=== PATIENT | male | born 1990 | race Caucasian/White ===

== ENCOUNTER 2018-04-16 11:29 | Emergency (ER) | payer BC ==
[2018-04-16 12:38] LABS: APPEARANCE CLEAR (CLEAR); BACTERIA FEW /hpf (NONE SEEN); BILIRUBIN NEGATIVE (NEGATIVE); COLOR YELLOW (YELLOW); EPITHELIAL CELLS RARE /hpf (0-5); GLUCOSE NEGATIVE (NEGATIVE); KETONE NEGATIVE (NEGATIVE); MUCUS <1+ /lpf (NONE SEEN); NITRITE NEGATIVE (NEGATIVE); PROTEIN NEGATIVE (NEGATIVE); UROBILINOGEN NORMAL (NORMAL); WHITE CELLS - URINE 0-5 /hpf (0-5)
== END 2018-04-16 12:47 | disposition home or self-care (01) ==
LOC: D.ER 11:29
PROVIDERS: Emergency Medicine
DX: R19.7 Diarrhea, unspecified (principal); R10.9 Unspecified abdominal pain; F17.200 Nicotine dependence, unspecified, uncomplicated

== ENCOUNTER 2018-06-19 13:44 | Emergency (ER) | payer MEDICAID ==
[~2018-06-19] VITALS: Ht 188 cm; Wt 65.0 kg
[2018-06-19 13:51] VITALS: Ht 188 cm; Wt 65.0 kg
[2018-06-19] MEDS ORDERED: LOMOTIL TABLET1 TAB PO (13:55)
[2018-06-19] MEDS ORDERED: ZOFRAN ODT4 MG/UDTAB (13:55)
[2018-06-19] MEDS ORDERED: ZOLOFT25 MG PO (13:56)
[2018-06-19] MEDS ORDERED: KLONOPIN1 MG PO (13:56)
[2018-06-19] MEDS ORDERED: ADDERALL XR 1010 M1 PO (13:56)
[2018-06-19 14:13] LABS: BASOPHILS 0.5 % (0-2); EOSINOPHILS 2.2 % (0-7); IMMATURE GRANULOCYTES 0.2 % (0-5); LYMPHOCYTES 36.8 % (15-50); MCH 31.6 pg (26.0-34.0); MCHC 34.8 g/dL (31.0-37.0); MCV 90.7 fL (80.0-100.0); MEAN PLATELET VOLUME 9.6 fL (7.4-10.4); MONOCYTES 9.1 % (2-11); NEUTROPHILS 51.2 % (40-80); PLATELET COUNT 261 10x3/uL (130-400); RBC 5.07 10x6/uL (4.20-6.10); RDW 13.5 % (11.5-14.5)
[2018-06-19 14:24] LABS: APPEARANCE CLEAR (CLEAR); BILIRUBIN NEGATIVE (NEGATIVE); COLOR YELLOW (YELLOW); GLUCOSE NEGATIVE (NEGATIVE); KETONE NEGATIVE (NEGATIVE); NITRITE NEGATIVE (NEGATIVE); PROTEIN NEGATIVE (NEGATIVE); SPECIFIC GRAVITY 1.005 (1.005-1.020); UROBILINOGEN NORMAL (NORMAL)
[2018-06-19 14:36] LABS: ALBUMIN 3.5 g/dL (3.4-5.0); ALKALINE PHOSPHATASE 84 U/L (46-116); ALT (SGPT) 29 U/L (10-68); AMYLASE - SERUM 55 U/L (25-115); CALC OSMOLALITY 276 mosm/kg (275-300); CALCIUM 8.8 mg/dL (8.5-10.1); CARBON DIOXIDE 30.3 mmol/L (21.0-32.0); CHLORIDE - SERUM 103 mmol/L (98-107); CREATININE - SERUM 0.7 mg/dL (0.6-1.3); GLUCOSE 95 mg/dL (74-106); LIPASE 139 U/L (73-393); POTASSIUM - SERUM 4.1 mmol/L (3.5-5.1); PROTEIN - SERUM 7.5 g/dL (6.4-8.2); SODIUM 140 mmol/L (136-145); UREA NITROGEN 8 mg/dL (7-18); eGFR NON AFRICAN AMERICAN > 90 mL/min (90-120)
[2018-06-19] MEDS ORDERED: OMEPRAZOLE40 MG PO (19:34)
[2018-06-19 21:07] VITALS: BP 117/76
== END 2018-06-19 21:07 | disposition home or self-care (01) ==
LOC: D.ER 13:44
PROVIDERS: Emergency Medicine
DX: R10.13 Epigastric pain (principal); F17.200 Nicotine dependence, unspecified, uncomplicated

== ENCOUNTER → 2018-09-15 11:00 | Outpatient (CLI) | payer MEDICAID ==
[2018-06-19 13:51] VITALS: BMI 18.4
[~2018-09-15 11:00] MED LIST: ADDERALL XR 1010 M1 PO; KLONOPIN1 MG PO; LOMOTIL TABLET1 TAB PO; OMEPRAZOLE40 MG PO; ZOFRAN ODT4 MG/UDTAB; ZOLOFT25 MG PO
== END | disposition home or self-care (01) ==
LOC: D.MRI 11:00
DX: M79.671 Pain in right foot (principal)

== ENCOUNTER 2020-08-30 23:26 | Emergency (ER) | payer SELFPAY ==
[~2020-08-30] VITALS: Ht 188 cm; Wt 75.0 kg
[2020-08-30 23:32] VITALS: Ht 188 cm; Wt 75.0 kg
[2020-08-31] MEDS ORDERED: NEURONTIN 300300 MG PO (01:37)
[2020-08-31 01:46] LABS: BILIRUBIN NEGATIVE (NEGATIVE); KETONE NEGATIVE (NEGATIVE); NITRITE NEGATIVE (NEGATIVE); UROBILINOGEN NORMAL mg/dL (< 2)
[2020-08-31 02:24] VITALS: BP 107/60
== END 2020-08-31 02:25 | disposition home or self-care (01) ==
LOC: D.ER 23:26
PROVIDERS: Family Medicine
DX: M54.5 Low back pain (principal); M54.16 Radiculopathy, lumbar region